=== PATIENT | female | born 1940 | race Caucasian/White ===

== ENCOUNTER 2021-03-26 12:28 | Emergency (ER) | payer OTHER ==
[~2021-03-26] VITALS: Wt 108.9 kg
[~2021-03-26 12:28] MED LIST: AMLODIPINE5 MG PO; ASPIR-LOW81 MG PO; HYDROCODONE BIT1 T11 PO; LOVASTATIN40 MG PO; NAPROXEN500 M1 PO; PENTOPAK400 MG PO; SERTRALINE50 MG PO
== END 2021-03-26 14:30 | disposition home or self-care (01) ==
LOC: ED 12:28
DX: S62.323A Displaced fracture of shaft of third metacarpal bone, left hand, initial encounter for closed fracture (principal); M06.9 Rheumatoid arthritis, unspecified; Z79.82 Long term (current) use of aspirin; Z79.899 Other long term (current) drug therapy; Z90.711 Acquired absence of uterus with remaining cervical stump; W10.8XXA Fall (on) (from) other stairs and steps, initial encounter; Y93.01 Activity, walking, marching and hiking; Y92.89 Other specified places as the place of occurrence of the external cause; Y99.8 Other external cause status

== ENCOUNTER → 2021-04-05 | Outpatient (CLI) | payer OTHER | END | disposition home or self-care (01) | LOC: RAD 00:40 | PROVIDERS: ATTEND Orthopaedic Surgery | DX: S62.393A Other fracture of third metacarpal bone, left hand, initial encounter for closed fracture (principal); M85.842 Other specified disorders of bone density and structure, left hand; M25.742 Osteophyte, left hand; X58.XXXA Exposure to other specified factors, initial encounter; Y93.89 Activity, other specified; Y92.89 Other specified places as the place of occurrence of the external cause; Y99.8 Other external cause status ==

== ENCOUNTER → 2021-04-14 | Outpatient (CLI) | payer OTHER | END | disposition home or self-care (01) | LOC: ORTHO 05:33 | PROVIDERS: ATTEND Orthopaedic Surgery | DX: S62.353D Nondisplaced fracture of shaft of third metacarpal bone, left hand, subsequent encounter for fracture with routine healing (principal); M19.042 Primary osteoarthritis, left hand; M79.89 Other specified soft tissue disorders; X58.XXXD Exposure to other specified factors, subsequent encounter ==

== ENCOUNTER 2022-02-05 18:11 | Emergency (ER) | payer OTHER ==
[~2022-02-05] VITALS: Ht 162.5 cm; Wt 94.8 kg
[2022-02-05] MEDS ORDERED: Percocet 325 MG1 TAB PO (18:46)
== END 2022-02-05 18:50 | disposition home or self-care (01) ==
LOC: ED 18:11
DX: M25.551 Pain in right hip (principal); Z90.710 Acquired absence of both cervix and uterus; Z98.890 Other specified postprocedural states; Z79.899 Other long term (current) drug therapy